=== PATIENT | female | born 1985 | race Caucasian/White ===

== ENCOUNTER 2019-12-30 02:42 | Inpatient (IN) ==
[2019-12-30 05:55] LABS: Urine Benzodiazepine Screen None Detected (None Detect); Urine Opiates Screen None Detected (None Detect)
[2019-12-30] MEDS ORDERED: OBEPIDURAL 250 ML EPIDURAL ONE (06:43)
[2019-12-30 06:48] LABS: Hematocrit 35 % (35-47); Hemoglobin 12.3 g/dL (12.0-16.0); Mean Corpuscular HGB Conc 35 g/dL (31-36); Mean Corpuscular Hemoglobin 33 pg (27-31); Mean Corpuscular Volume 93 fL (80-97); Mean Platelet Volume 9.6 fL (7.4-10.4); Platelet Count 179 10^3/uL (150-450); Red Blood Count 3.73 10^6 /uL (3.70-4.87); Red Cell Distribution Width 14 % (10-15); White Blood Count 13.3 10^3/uL (3.5-10.8)
[2019-12-30] MEDS ORDERED: Lactated Ringers 1000 ml BAG 1,000 ML IV SCH ×2 (07:00→22:00)
[2019-12-30] MEDS ORDERED: Lactated Ringers 1000 ml BAG 1,000 ML IV ONE ×2 (07:00→07:46)
[2019-12-30] MEDS ORDERED: Bupivacaine 0.25% SDV PF* 10 ML VIAL INJ ONE (07:19)
[2019-12-30] MEDS ORDERED: Sodium Citrate/Citric Acid LIQ 15 ML UDC PO PRN (07:46)
[2019-12-30] MEDS ORDERED: Phenylephrine 40 mcg/mL 10mL (400mcg) SYRINGE IV PUSH PRN ×2 (07:46)
[2019-12-30] MEDS ORDERED: OBEPIDURAL 250 ML EPIDURAL SCH (08:00)
[2019-12-30 08:41] LABS: ABS Lymphocytes 1.2 10^3/ul (1.0-4.8); ABS Monocytes 0.4 10^3/ul (0-0.8); Lymphocyte % 9.3 %; Nucleated Red Blood Cells % 0.3
[2019-12-30] MEDS ORDERED: Oxytocin in LR 20 UNITS/1,000 ML BAG IVPB SCH ×2 (10:00→22:00)
[2019-12-30] MEDS: Lactated Ringers 1000 ml BAG 1,000 ML IV SCH ×2 (12:02→16:08)
[2019-12-30] MEDS ORDERED: Dibucaine 1% OINT 28.35 GM TUBE PR PRN (21:10)
[2019-12-30] MEDS ORDERED: Glycerin ADULT 2.4 gm SUPP PR PRN (21:10)
[2019-12-30] MEDS: Witch Hazel PAD JAR TOPICAL PRN (22:16)
[2019-12-31 07:25] LABS: ABS Lymphocytes 1.6 10^3/ul (1.0-4.8); ABS Monocytes 1.3 10^3/ul (0-0.8); Eosinophil % 0.1 %; Hematocrit 28 % (35-47); Hemoglobin 9.8 g/dL (12.0-16.0); Lymphocyte % 9.6 %; Mean Corpuscular HGB Conc 35 g/dL (31-36); Mean Corpuscular Hemoglobin 33 pg (27-31); Mean Corpuscular Volume 94 fL (80-97); Mean Platelet Volume 8.7 fL (7.4-10.4); Platelet Count 146 10^3/uL (150-450); Red Blood Count 2.99 10^6 /uL (3.70-4.87); Red Cell Distribution Width 14 % (10-15); White Blood Count 16.2 10^3/uL (3.5-10.8)
[2020-01-01 08:00] VITALS: BP 123/68
[2020-01-01] MEDS: Witch Hazel PAD JAR TOPICAL PRN (10:07)
== END 2020-01-01 13:45 | disposition home or self-care (01) | DRG 560 ==
LOC: MCHOBOUT 02:42 → MCHOB 03:20
PROVIDERS: ADMIT Midwife; ATTEND Midwife